=== PATIENT | male | born 1995 | race Two or more races ===

== ENCOUNTER → 2016-09-06 | Day surgery (SDC) | payer OTHER ==
[~2016-09-06] MED LIST: Buffered Lidocaine 1% SYR 3ML* 3 ML/SYR SYRINGE INTRADERM ONE; Buffered Lidocaine 1% SYR 3ML* 3 ML/SYR SYRINGE ONE; Bupivacaine 0.25% EPI 200,000* 30 ML SDV ONE; Bupivacaine 0.25% SDV* 30 ML ONE; Dexamethasone IV* 4 MG/ML 1 ML (4 MG) IV SLOW PU ONE; Dexamethasone IV* 4 MG/ML 1 ML (4 MG) ONE; EPHEDrine (Pressors)* 50 MG/ML VIAL ONE; Ketorolac INJ* 30 MG/ML 1 ML VIAL ONE; Lidocaine 2% MPF* 2 ML VIAL ONE; Ondansetron INJ* 2 MG/ML VIAL ONE; PROCHLORPERAZINE INJ 5 MG/ML 2 ML VIAL IV PRN; Propofol* 10 MG/ML 20 ML BTL IV PUSH ONE; ceFAZolin 2 GM PREMIX (*) 2 GM/50 ML BAG IVPB ONE; fentaNYL* 50 MCG/ML 2 ML VIAL (100 MCG VIAL) IV PRN; fentaNYL* 50 MCG/ML 2 ML VIAL (100 MCG VIAL) ONE; oxyCODONE/Acetamin 5/325 MG* TAB PO PRN
[2016-09-06 18:45] VITALS: BP 123/58
--- NOTE | 2016-09-18 01:39 | OP ---
DATE OF OPERATION: 09/06/16. - [facility] DATE OF : 95. SURGEON: Sujit Burrows MD ANESTHESIOLOGIST: Kavitha Burrell MD ANESTHESIA: General. 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 POST-OP DIAGNOSIS: Right knee OCD lesion of the lateral femoral condyle and lateral meniscus tear. OPERATIVE PROCEDURE: Right knee arthroscopy with lateral meniscus repair and chondroplasty. COMPLICATIONS: None. ESTIMATED BLOOD LOSS: Minimal. IMPLANTS: Two Fast-Fix 360s were used. 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 He was diagnosed with lateral meniscus tear as well as an OCD lesion of the lateral femoral condyle. Risks and benefits of the surgery were discussed at length and he has elected to proceed with treatment after being out for the season from a concussion approximately 2 to 3 weeks ago. He underwent preoperative clearance by Alcides and he is ready for surgery today. Risks and benefits were discussed at length and included but not limited to bleeding, infection, damage to nerves, vessels, surrounding structures, wound nonhealing, persistent pain, need for further surgery, failures of repair, risk of anesthesia, risk of arthritis, DVT, as well as incomplete relief of symptoms. He has elected to proceed. DESCRIPTION OF PROCEDURE: The patient was greeted in the preoperative area by the attending surgeon. The correct extremity was marked and consent was confirmed. The patient was then brought back to the operating room where he was placed in the supine position in the operating room table. He then underwent general anesthesia and LMA intubation after which a nonsterile tourniquet was placed high on the proximal thigh, a lateral post was placed. The knee was examined and found to have full range of motion, stable Angie, negative posterior drawer. The knee was then, after a miniature surgical pause, intra- articularly injected with 0.25% Marcaine with epi. The knee was then prepped and draped in the usual sterile fashion beginning with chlorhexidine soap and alcohol wipe and a final prep with ChloraPrep. After appropriate surgical pause indicating side, site, procedure and administration of antibiotics, the standard lateral portal was made and the scope was introduced through the joint. The patella had grade 0 to 1 changes. There were multiple loose bodies that were identified, they were floating in the intraarticular space. The scope was then brought into the notch, which was found to have intact ACL and PCL, although the ACL had evidence of mild hemorrhage. The medial compartment was examined. There were grade 0 changes in the medial femoral condyle and medial tibial plateau. Again there were small loose bodies that were identified. These were then removed after the medial portal was established with a shaver blade. The knee was then placed in a [id number] position and the cartilage lesion was identified. This was with the knee in approximately 100 degrees or more of flexion and identified a small less than 1 cm x 1 cm lesion of the lateral femoral condyle. The preoperative plan was to include a possible BioCartilage versus microfracture versus Cartiform, but due to the small extent of the lesion and the fact that the flaps were not unstable this was left alone. There was cartilage covering this. There was grade 2 lesion with unstable flaps. This was probed and it did probe quite easily, but again there were no large unstable flaps. The small flaps were then debrided back using a shaver blade and the cartilage was seen to be stable. Therefore, no cartilage procedure was chosen to be done. Attention was then directed to the meniscus, which was then probed posterolaterally and it was unstable and subluxing the joint. The body of the meniscus was still good a quality. This was a very peripheral tear and the decision was made to try to repair this. The meniscal rasp was then used to rasp the capsule as well as the meniscus then the Fast-Fix was used to carefully place 2 anchors posteriorly trying to avoid the popliteal hiatus. This allowed for good stabilization of the meniscus. At this point, the knee was taken through gentle range of motion, it is found to not sublux the tear. The knee was then placed in 90 degrees and a sharp trocar was then used to create a defect in the notch to allow for a better healing. The joint was copiously irrigated. The portals were closed with 3-0 nylon, and the knee was intra-articularly injected with 0.25% Marcaine plain and sterile dressings were applied. He was awoken from anesthesia and transferred to the PACU in the stable condition. POSTOPERATIVE PLAN: He will be nonweightbearing for 4 weeks. His range of motion will be 0 to 60 degrees. He will start physical therapy with his head athletic trainer. He will be discharged on pain medication. DVT prophylaxis was considered, but deferred due to no previous personal or family history. I will see the patient back in 10 to 14 days. [id number]/[facility] #: [id number] EDDIE
== END | disposition home or self-care (01) ==
LOC: OR 11:46
PROVIDERS: ATTEND Orthopaedic Surgery
DX: S83.281A Other tear of lateral meniscus, current injury, right knee, initial encounter (principal); M93.261 Osteochondritis dissecans, right knee; X50.0XXA Overexertion from strenuous movement or load, initial encounter; Y93.69 Activity, other involving other sports and athletics played as a team or group; Y92.39 Other specified sports and athletic area as the place of occurrence of the external cause
CPT/HCPCS: J0690; J1100; J1885; J2405; J2704; J3010

== ENCOUNTER 2017-12-19 14:44 | Emergency (ER) | payer OTHER ==
[2017-12-19 15:04] VITALS: BP 139/65
--- NOTE | 2017-12-19 15:16 | UC ---
Hand/Wrist HPI - HPI Summary HPI Summary: 22 yo male 3 weeks s/p injury to dorsum of left hand 3 weeks ago persistent pain distal 4th MC and 4th MCP joint he is right handed he has been wrestling despite this injury - History Of Current Complaint Chief Complaint: UCUpperExtremity Stated Complaint: HAND INJURY Hx Obtained From: Patient Onset/Duration: Sudden Onset, Lasting Weeks Severity Initially: Moderate Severity Currently: None Pain Intensity: 0 - no pain at rest Pain Scale Used: 0-10 Numeric Character Of Pain: Dull, Aching Aggravating Factor(s): Movement, Flexion, Extension, Abduction, Adduction Alleviating Factor(s): Rest Associated Signs And Symptoms: Positive: Swelling - initially, Bruising - initially Related History: Dominant Hand Right Hands: 1 - pain here 2 - pain radiates here - Allergies/Home Medications Allergies/Adverse Reactions: Allergies Allergy/AdvReac Type Severity Reaction Status Date / Time No Known Allergies Allergy Verified 12/19/17 15:04 PMH/Surg Hx/FS Hx/Imm Hx Previously Healthy: Yes - Surgical History Surgical History: Yes Surgery Procedure, Year, and Place: Right knee x 2, T & A - Family History Known Family History: Positive: Hypertension - Social History Alcohol Use: Occasionally Substance Use Type: None Smoking Status (MU): Never Smoked Tobacco Review of Systems Constitutional: Negative Skin: Negative Eyes: Negative ENT: Negative Respiratory: Negative Cardiovascular: Negative Gastrointestinal: Negative Genitourinary: Negative Motor: Negative Neurovascular: Negative Musculoskeletal: Arthralgia Neurological: Negative Psychological: Negative Is Patient Immunocompromised?: No All Other Systems Reviewed And Are Negative: Yes Physical Exam Triage Information Reviewed: Yes Appearance: Well-Appearing, No Pain Distress, Well-Nourished Vital Signs: Initial Vital Signs Temp 98.2 F 12/19/17 15:00 Pulse 65 12/19/17 15:00 Resp 12 12/19/17 15:00 BP 139/65 12/19/17 15:00 Pulse Ox 97 12/19/17 15:00 Eyes: Positive: Conjunctiva Clear ENT: Positive: Hearing grossly normal. Negative: Nasal congestion, Nasal drainage, Trismus, Muffled voice, Hoarse voice Dental Exam: Normal Neck: Positive: Supple Respiratory: Positive: Lungs clear, Normal breath sounds, No respiratory distress Cardiovascular: Positive: RRR, No Murmur Musculoskeletal: Positive: ROM Intact, No Edema Neurological: Positive: Alert Psychological Exam: Normal Skin Exam: Normal Diagnostics - Radiology No standard instances Xray Interpretation: No Acute Changes - right hand Radiology Interpretation Completed By: Radiologist Hand/Wrist Course/Dx - Differential Dx/Diagnosis Provider Diagnoses: right hand contusion. post trauma tendonitis Discharge - Sign-Out/Discharge Documenting (check all that apply): Discharge/Admit/Transfer - Discharge Plan Condition: Stable Disposition: HOME Patient Education Materials: Tendinitis (ED) Referrals: [facility] [Outside] - 2 Weeks (if not better) Additional Instructions: warm soaks with range of motion twice daily advil or aleve recheck in a few weeks if not completely better - Billing Disposition and Condition Condition: STABLE Disposition: HOME
--- NOTE | 2017-12-19 15:36 | RAD ---
HISTORY: Crush injury, subacute trauma, continued pain at fourth MCP joint COMPARISONS: None VIEWS: 4, Frontal, lateral, and oblique views of the left hand FINDINGS: BONE DENSITY: Normal. BONES: There is no displaced fracture. JOINTS: There is no arthropathy. ALIGNMENT: There is no dislocation. SOFT TISSUES: Unremarkable. OTHER FINDINGS: None. IMPRESSION: NO ACUTE OSSEOUS INJURY. IF SYMPTOMS PERSIST, RECOMMEND REPEAT IMAGING.
== END 2017-12-19 15:55 | disposition home or self-care (01) ==
LOC: UCEAST 14:44
DX: S60.222A Contusion of left hand, initial encounter (principal); X58.XXXA Exposure to other specified factors, initial encounter; Y93.9 Activity, unspecified; Y92.9 Unspecified place or not applicable; M65.842 Other synovitis and tenosynovitis, left hand
CPT/HCPCS: 99211; G0463